=== PATIENT | female | born 1970 | race Asian ===

== ENCOUNTER 2016-08-19 07:38 | Emergency (ER) | payer BC ==
[~2016-08-19] VITALS: Wt 51.3 kg
[~2016-08-19 07:38] MED LIST: CEPH-443 PO; FLUC150T17 PO
--- NOTE | 2016-08-19 08:35 | RADRPT ---
PROCEDURE: Chest Radiograph. CLINICAL INDICATION: Chest pain TECHNIQUE: Single frontal chest radiograph. COMPARISON: Chest radiograph 09/14/2014 FINDINGS: The cardiomediastinal silhouette is within normal limits. No infiltrate or effusion is seen. Th e bones are intact. IMPRESSION: 1. Unremarkable chest radiograph. RPTAT: AA .Meño Hay MD, MD Date Time Electronically viewed and signed by .Meño Hay MD, on 08/19/2016 08:34 .B/
[2016-08-19 08:39] LABS: BASOPHIL # 0.1 10^3/ul (0.0-0.1); BASOPHILS % 0.9 % (0.0-2.0); EOSINOPHILS # 0.3 10^3/ul (0.0-0.5); EOSINOPHILS % 5.3 % (0.0-7.0); HEMOGLOBIN 13.1 g/dl (12.0-16.0); LYMPHOCYTES # 2.6 10^3/ul (0.8-2.9); LYMPHOCYTES % 42.1 % (15.0-51.0); MEAN CORPUSCULAR HEMOGLOBIN 30.2 pg (29.0-33.0); MEAN CORPUSCULAR HGB CONC 33.7 g/dl (32.0-37.0); MEAN CORPUSCULAR VOLUME 89.6 fl (82.0-101.0); MEAN PLATELET VOLUME 8.6 fl (7.4-10.4); MONOCYTE # 0.3 10^3/ul (0.3-0.9); MONOCYTES % 5.3 % (0.0-11.0); NEUTROPHIL # 2.9 10^3/ul (1.6-7.5); NEUTROPHILS % 46.4 % (39.0-77.0); PLATELET COUNT 187 10^3/UL (140-440); RED BLOOD COUNT 4.36 10^6/ul (4.20-5.40); RED CELL DISTRIBUTION WIDTH 12.8 % (11.5-14.5); UNCORRECTED WBC 6.3 10^3/ul (4.8-10.8); WHITE BLOOD COUNT 6.3 10^3/ul (4.8-10.8)
[2016-08-19 08:42] LABS: CONDITION 1
[2016-08-19 08:51] LABS: CHLORIDE 103 mmol/L (97-110); INR 0.84; POTASSIUM 4.1 mmol/L (3.5-5.1); PROTIME 11.5 Sec (12.2-14.2); PT RATIO 0.9; SODIUM 143 mmol/L (135-144)
[2016-08-19 08:52] LABS: PARTIAL THROMBOPLASTIN TIME 26.8 Sec (25.0-35.0)
[2016-08-19 08:54] LABS: ANION GAP 15 (8-16); BLOOD UREA NITROGEN 16 mg/dl (7-20); CALCIUM 9.6 mg/dl (8.4-10.2); CARBON DIOXIDE 29 mmol/L (21-31); CREATININE 0.62 mg/dl (0.44-1.00); GLUCOSE 109 mg/dl (70-220)
[2016-08-19 09:11] LABS: TROPONIN-I < 0.012 ng/ml (0.00-0.12)
[2016-08-19] MEDS ORDERED: KETOROLAC 15 MG INJ IV STA (09:54)
[2016-08-19] MEDS ORDERED: IBUP800T25 PO (09:56)
--- NOTE | 2016-08-19 09:56 | ERD ---
ER Documentation Chief Complaint Date/Time DATE: 08/19/16 TIME: 09:53 Chief Complaint CHEST PAIN FOR 2 DAYS WITH NO N/V NO SOB NOTED. HPI This is a 38-year-old female presents to the emergency room for evaluation of chest pain for 2 days. The patient states that her chest pain is in the right portion of her chest, worse with trunk movement. The patient does state that she was lifting heavy weights at the gym and came to the ER today for evaluation. Denying any relieving factors for her pain and states that the pain is actually almost subsided at this time per ROS All systems reviewed and are negative except as per history of present illness. Medications Home Meds Active Scripts Fluconazole* (Diflucan*) 150 Mg Tablet, 150 MG PO ONCE, #1 TAB Prov:CHENG BARRERA MD 07/30/16 Cephalexin* (Keflex*) 500 Mg Capsule, 500 MG PO TID for 5 Days, CAP Prov:CHENG BARRERA MD 07/30/16 Allergies Allergies: Coded Allergies: No Known Drug Allergy (Verified Allergy, Unknown, 07/30/16) PMhx/Soc History of Surgery: Yes (HYSTERECTOMY) Anesthesia Reaction: No Hx Neurological Disorder: No Hx Respiratory Disorders: No Hx Cardiac Disorders: No Hx Psychiatric Problems: No Hx Miscellaneous Medical Probl: No Hx Alcohol Use: No Hx Substance Use: No Hx Tobacco Use: No Smoking Status: Never smoker Physical Exam Vitals Vital Signs Date Time Temp Pulse Resp B/P Pulse Ox O2 Delivery O2 Flow Rate FiO2 08/19/16 07:53 98.5 61 20 119/62 98 Physical Exam Const: [] Head: Atraumatic Eyes: Normal Conjunctiva ENT: Normal External Ears, Nose and Mouth. Neck: Full range of motion..~ No meningismus. Resp: Clear to auscultation bilaterally Cardio: Regular rate and rhythm, no murmurs Abd: Soft, non tender, non distended. Normal bowel sounds Skin: No petechiae or rashes Back: No midline or flank tenderness Ext: No cyanosis, or edema Neur: Awake and alert Psych: Normal Mood and Affect Result Diagram: 08/19/16 0833 08/19/16 0833 Results 24 hrs Laboratory Tests Test 08/19/16 08:33 Activated Partial Thromboplast Time 26.8Sec Anion Gap 15 Basophils # 0.110^3/ul Basophils % 0.9% Blood Urea Nitrogen 16mg/dl Calcium Level 9.6mg/dl Carbon Dioxide Level 29mmol/L Chloride Level 103mmol/L Creatinine 0.62mg/dl Eosinophils # 0.310^3/ul Eosinophils % 5.3% Glucose Level 109mg/dl Hematocrit 39.0% Hemoglobin 13.1g/dl INR International Normalized Ratio 0.84 Lymphocytes # 2.610^3/ul Lymphocytes % 42.1% Mean Corpuscular Hemoglobin 30.2pg Mean Corpuscular Hemoglobin Concent 33.7g/dl Mean Corpuscular Volume 89.6fl Mean Platelet Volume 8.6fl Monocytes # 0.310^3/ul Monocytes % 5.3% Neutrophils # 2.910^3/ul Neutrophils % 46.4% Nucleated Red Blood Cells # 0.010^3/ul Nucleated Red Blood Cells % 0.0/100WBC Platelet Count 13826^3/UL Potassium Level 4.1mmol/L Prothrombin Time 11.5Sec Prothrombin Time Ratio 0.9 Red Blood Count 4.3610^6/ul Red Cell Distribution Width 12.8% Sodium Level 143mmol/L Troponin I < 0.012ng/ml White Blood Count 6.310^3/ul Procedures/MDM EKG: Rate/Rhythm: [Normal Sinus Rhythm] QRS, ST, T-waves: [No changes consistent w/ acute ischemia] Impression: [No evidence of ischemia or arrhythmia] Chest X-ray 1V Interpreted by me: Soft Tissue: No acute abnormalities Bones: No acute abnormalities Mediastinum/Cardiac Silhouette/Lungs: [No acute abnormalities] This is a 46-year-old female presents to the emergency room for evaluation of chest pain. The patient states that she has had chest pain for the past 2 days. She states is worse with trunk movement. She did have a minor tenderness to palpation on examination of the anterior chest wall. EKG is normal sinus rhythm, no ischemia, first troponin is normal. The patient has a negative chest x-ray. She is hemodynamically stable, not hypoxic, resting comfortably. She was given Toradol with moderate relief of her symptoms. I do believe that she has a chest wall strain. Advised to follow-up with her primary care physician to schedule outpatient stress test. The patient verbalized understanding is okay the plan of care at this time. Departure Diagnosis: Primary Impression: Chest pain Additional Impression: Chest wall muscle strain Condition: Stable ROXANN STOUT DO Aug 19, 2016 09:55
== END 2016-08-19 10:10 | disposition home or self-care (01) ==
LOC: E/R 07:38
DX: S29.011A Strain of muscle and tendon of front wall of thorax, initial encounter (principal); R07.9 Chest pain, unspecified; X50.0XXA Overexertion from strenuous movement or load, initial encounter; Y92.39 Other specified sports and athletic area as the place of occurrence of the external cause
CPT/HCPCS: 71010; 80048; 84484; 85025; 85610; 85730; 93005

== ENCOUNTER → 2017-04-12 | Outpatient (CLI) | payer BC ==
[~2017-04-12] MED LIST changes: +IBUP800T25 PO
[2017-04-12 10:08] LABS: ADD UMIC NO; UR ASCORBIC ACID 40 mg/dL (NEGATIVE); UR BILIRUBIN (Dip) NEGATIVE (NEGATIVE); UR BLOOD (Dip) NEGATIVE (NEGATIVE); UR CLARITY CLEAR (CLEAR); UR COLOR YELLOW (YELLOW); UR GLUCOSE (Dip) NEGATIVE (NEGATIVE); UR KETONES (Dip) NEGATIVE (NEGATIVE); UR LEUKOCYTE ESTERASE (Dip) NEGATIVE Leu/ul (NEGATIVE); UR NITRITE (Dip) NEGATIVE (NEGATIVE); UR SPECIFIC GRAVITY (Dip) 1.015 (1.003-1.030); UR TOTAL PROTEIN (Dip) NEGATIVE (NEGATIVE); UR UROBILINOGEN (Dip) NEGATIVE (NEGATIVE)
[2017-04-12 10:10] LABS: BASOPHILS % 0.7 % (0.0-2.0); EOSINOPHILS # 0.4 10^3/ul (0.0-0.5); EOSINOPHILS % 7.5 % (0.0-7.0); HEMATOCRIT 39.4 % (37.0-47.0); HEMOGLOBIN 12.9 g/dl (12.0-16.0); LYMPHOCYTES # 2.7 10^3/ul (0.8-2.9); LYMPHOCYTES % 48.7 % (15.0-51.0); MEAN CORPUSCULAR HEMOGLOBIN 29.3 pg (29.0-33.0); MEAN CORPUSCULAR HGB CONC 32.7 g/dl (32.0-37.0); MEAN CORPUSCULAR VOLUME 89.5 fl (82.0-101.0); MEAN PLATELET VOLUME 10.2 fl (7.4-10.4); MONOCYTE # 0.3 10^3/ul (0.3-0.9); MONOCYTES % 6.1 % (0.0-11.0); NEUTROPHIL # 2.1 10^3/ul (1.6-7.5); NEUTROPHILS % 36.8 % (39.0-77.0); PLATELET COUNT 193 10^3/UL (140-415); RED CELL DISTRIBUTION WIDTH 12.6 % (11.5-14.5); WHITE BLOOD COUNT 5.6 10^3/ul (4.8-10.8)
[2017-04-12 10:45] LABS: ALBUMIN 4.4 g/dl (3.3-4.9); ALBUMIN/GLOBULIN RATIO 1.12; BILIRUBIN,INDIRECT 0.5 mg/dl (0-1.1); BILIRUBIN,TOTAL 0.5 mg/dl (0.2-1.3); CHOL/HDL RATIO 3.7 RATIO; CREATININE 0.65 mg/dl (0.44-1.00); POTASSIUM 3.9 mmol/L (3.5-5.1); TOTAL PROTEIN 8.3 g/dl (6.1-8.1)
[2017-04-12 11:14] LABS: THYROID STIMULATING HORMONE 0.861 MIU/L (0.465-4.680)
== END | disposition home or self-care (01) ==
LOC: LAB 09:43
PROVIDERS: ATTEND Internal Medicine
DX: Z00.01 Encounter for general adult medical examination with abnormal findings (principal); E55.9 Vitamin D deficiency, unspecified
CPT/HCPCS: 80053; 80061; 81003; 82306; 84443; 85025; 85651; 86430

== ENCOUNTER 2017-06-19 18:08 | Emergency (ER) | payer BC ==
[~2017-06-19] VITALS: Wt 53.0 kg
[2017-06-19] MEDS ORDERED: KETOROLAC 15 MG INJ IV STA (20:27)
--- NOTE | 2017-06-19 21:00 | RADRPT ---
AMENDMENT: 06/19/2017 9:00:48 PM Shea Rivas M.d ADDENDUM: Comparison: Chest x-ray 08/19/2016. PROCEDURE: XR Chest. CLINICAL INDICATION: Chest pain. TECHNIQUE: AP Portable chest. COMPARISON: None FINDINGS: The cardiomediastinal silhouette is normal. The lungs are clear and costophrenic angles sharp. The osseous structures are unremarkable. IMPRESSION: No radiographic evidence of acute cardiopulmonary disease. RPTAT: HJAH .Shea Rivas MD, MD Date Time Electronically viewed and signed by .Shea Rivas MD, MD on 06/19/2017 21:00 .H/
[2017-06-19 21:15] LABS: BASOPHIL # 0.1 10^3/ul (0.0-0.1); EOSINOPHILS # 0.4 10^3/ul (0.0-0.5); EOSINOPHILS % 6.5 % (0.0-7.0); HEMATOCRIT 38.4 % (37.0-47.0); LYMPHOCYTES % 49.3 % (15.0-51.0); MEAN CORPUSCULAR HEMOGLOBIN 29.6 pg (29.0-33.0); MEAN CORPUSCULAR HGB CONC 33.9 g/dl (32.0-37.0); MEAN CORPUSCULAR VOLUME 87.5 fl (82.0-101.0); MEAN PLATELET VOLUME 10.7 fl (7.4-10.4); MONOCYTE # 0.4 10^3/ul (0.3-0.9); MONOCYTES % 7.3 % (0.0-11.0); NEUTROPHIL # 2.2 10^3/ul (1.6-7.5); NEUTROPHILS % 35.7 % (39.0-77.0); PLATELET COUNT 187 10^3/UL (140-415); RED BLOOD COUNT 4.39 10^6/ul (4.20-5.40); RED CELL DISTRIBUTION WIDTH 12.3 % (11.5-14.5)
[2017-06-19 21:31] LABS: ANION GAP 13 (8-16); BLOOD UREA NITROGEN 20 mg/dl (7-20); CALCIUM 9.9 mg/dl (8.4-10.2); CARBON DIOXIDE 31 mmol/L (21-31); CHLORIDE 104 mmol/L (97-110); CREATININE 0.76 mg/dl (0.44-1.00); GLUCOSE 101 mg/dl (70-220); POTASSIUM 4.1 mmol/L (3.5-5.1); SODIUM 144 mmol/L (135-144)
[2017-06-19 21:48] LABS: TROPONIN-I < 0.012 ng/ml (0.00-0.12)
[2017-06-19] MEDS ORDERED: NAPR-260 PO (21:53)
--- NOTE | 2017-06-19 22:00 | ERD ---
ER Documentation Chief Complaint Chief Complaint ON AND OFF CHEST X1 DAY HPI 47-year-old female no significant past medical history presents to the emergency room with left-sided chest pain. She describes it as sharp, worse to touch and slightly radiating to the left shoulder. She denies any exertional symptoms, no pleuritic pain, no fevers or chills and no mid back pain. The patient states that she has had multiple episodes of this in the past since 2012 with negative workups in the emergency room. She has not had stress testing. ROS All systems reviewed and are negative except as per history of present illness. Medications Home Meds Active Scripts Naproxen* (Naprosyn*) 500 Mg Tablet, 500 MG PO BID Y for PAIN AND/OR INFLAMMATION, #15 TAB Prov:MARTINEZ MILLER MD 06/19/17 Ibuprofen* (Motrin*) 800 Mg Tab, 800 MG PO Q6H Y for PAIN AND OR ELEVATED TEMP, #30 TAB Prov:ROXANN STOUT DO 08/19/16 Fluconazole* (Diflucan*) 150 Mg Tablet, 150 MG PO ONCE, #1 TAB Prov:CHENG BARRERA MD 07/30/16 Cephalexin* (Keflex*) 500 Mg Capsule, 500 MG PO TID for 5 Days, CAP Prov:CHENG BARRERA MD 07/30/16 Allergies Allergies: Coded Allergies: No Known Drug Allergy (Verified Allergy, Unknown, 07/30/16) PMhx/Soc History of Surgery: Yes (HYSTERECTOMY, CS x 2) Anesthesia Reaction: No Hx Neurological Disorder: No Hx Respiratory Disorders: No Hx Cardiac Disorders: No Hx Psychiatric Problems: No Hx Miscellaneous Medical Probl: No Hx Alcohol Use: Yes Hx Substance Use: No Hx Tobacco Use: No Smoking Status: Never smoker FmHx Family History: No diabetes Physical Exam Vitals Vital Signs Date Time Temp Pulse Resp B/P Pulse Ox O2 Delivery O2 Flow Rate FiO2 06/19/17 20:21 63 20 145/92 100 Room Air 06/19/17 19:55 155/70 06/19/17 18:14 98.2 81 17 138/84 98 Physical Exam General: Well developed, well nourished, no acute distress Head: Normocephalic, atraumatic. Eyes: Pupils equally reactive, EOM intact ENT: Moist mucous membranes Neck: Supple, no lymphadenopathy Respiratory: Lungs clear bilaterally, no distress, very reproducible anterior chest wall tenderness along the sternal costal margin on the left side of the chest Cardiovascular: RRR, no murmurs, rubs, or gallops Abdominal: Soft, non-tender, non-distended, no peritoneal signs : Deferred MSK: No edema, no unilateral swelling, 5/5 strength Neurologic: Alert and oriented, moving all extremities, normal speech, no focal weakness, no cerebellar signs Skin: No rash Psych: Normal mood Result Diagram: 06/19/17204906/19/172049 Results 24 hrs Laboratory Tests Test 06/19/17 20:50 White Blood Count 6.010^3/ul Red Blood Count 4.3910^6/ul Hemoglobin 13.0g/dl Hematocrit 38.4% Mean Corpuscular Volume 87.5fl Mean Corpuscular Hemoglobin 29.6pg Mean Corpuscular Hemoglobin Concent 33.9g/dl Red Cell Distribution Width 12.3% Platelet Count 72004^3/UL Mean Platelet Volume 10.7fl Neutrophils % 35.7% Lymphocytes % 49.3% Monocytes % 7.3% Eosinophils % 6.5% Basophils % 1.0% Nucleated Red Blood Cells % 0.0/100WBC Neutrophils # 2.210^3/ul Lymphocytes # 3.010^3/ul Monocytes # 0.410^3/ul Eosinophils # 0.410^3/ul Basophils # 0.110^3/ul Nucleated Red Blood Cells # 0.010^3/ul Sodium Level 144mmol/L Potassium Level 4.1mmol/L Chloride Level 104mmol/L Carbon Dioxide Level 31mmol/L Anion Gap 13 Blood Urea Nitrogen 20mg/dl Creatinine 0.76mg/dl Glucose Level 101mg/dl Calcium Level 9.9mg/dl Troponin I < 0.012ng/ml Current Medications Medications (Trade) Dose Ordered Sig/Yaa Route PRN Reason Start Time Stop Time Status Last Admin Dose Admin Ketorolac Tromethamine (Toradol) 15 mg ONCE STAT IV 06/19/17 20:27 06/19/17 20:29 DC 06/19/17 21:03 Procedures/MDM EKG, MONITORS, & DIAGNOSTIC IMAGING: EKG: I reviewed and interpreted a 12-lead EKG. Rhythm: Normal sinus rhythm Ectopy: None Intervals: No abnormalities ST segments: No elevations or depressions T waves: No contiguous inversions Repeat EKG: EKG: I reviewed and interpreted a 12-lead EKG. Rhythm: Normal sinus rhythm Ectopy: None Intervals: No abnormalities ST segments: No elevations or depressions T waves: No contiguous inversions Chest x-ray: I reviewed and interpreted a 1 view of the chest Mediastinum: No enlargement Cardiac silhouette: No cardiomegaly Airspace: Clear lung rodriguez bilaterally without evidence of pneumothorax Bones: No evidence of fracture LAB INTERPRETATION: Negative troponin MEDICAL DECISION MAKING: The patient's history, physical exam and clinical presentation is very reproducible and most consistent with musculoskeletal etiology. The patient is 47 without significant risk factors for early cardiac disease. She is extremely reproducible symptoms at the bedside. Additionally, the patient has had multiple workups for chest pain in the past that have been unrevealing. The patient meets the PERC RULE out criteria. Thus, less than 2% risk of pulmonary embolism with better alternative diagnosis. No indication for d- dimer or CT pulmonary angiogram at this time. Based on the patient's clinical exam and history and risk factors, I have a much lower clinical concern for pulmonary embolism, acute aortic dissection, pneumothorax, pneumonia, cardiac tamponade HEART Score: 1 MACE Rate: Less than 1.7% Shared Decision Making: We had a conversation regarding risk stratification, MACE rate, and the risks, benefits, alternatives of disposition planning options. Disposition planning: Given very low pretest probability for cardiac etiology with reproducible symptoms I recommend outpatient follow-up. I discussed serial troponins in the emergency room with the patient is agreeable for single troponin given duration of symptoms. Than 6 hours, atypical presentation and negative workups in the past. ER COURSE: She was given an anti-inflammatory with improvement of symptoms. Her laboratory testing and diagnostic imaging is unrevealing. I attempted to call Dr. Brower without callback at this time. Outpatient follow-up recommended for patient. She is agreeable. Return precautions were discussed including exertional symptoms or worsening symptoms. I kept the patient and/or family informed of laboratory and diagnostic imaging results throughout the emergency room course. DISPOSITION PLAN: We discussed follow up with the patient's primary care doctor within 24 to 48 hours as needed. We also discussed return to the emergency room for worsening symptoms or worsening condition. Outpatient referral: [None required] Discharge Medications: Naprosyn Departure Diagnosis: Primary Impression: Chest wall pain Condition: Stable Patient Instructions: Chest Wall Pain, Costochondritis Additional Instructions: Call your primary care doctor TOMORROW for an appointment during the next 1 WEEK.Tell the national secretary that you were referred from this facility.See the doctor sooner or return here if your condition worsens before your appointment time. Return for worsening pain, exertional chest pain. MARTINEZ MILLER MD Jun 19, 2017 22:00
[2017-06-19 22:22] VITALS: BP 125/79; PULSE 67; RESP 20
== END 2017-06-19 22:22 | disposition home or self-care (01) ==
LOC: E/R 18:08
DX: R07.89 Other chest pain (principal)
CPT/HCPCS: 36415; 71010; 80048; 84484; 85025; 93005; 96374; 99285; J1885

== ENCOUNTER → 2017-06-22 | Outpatient (CLI) | END | disposition home or self-care (01) ==

== ENCOUNTER → 2017-07-12 | Outpatient (CLI) | END | disposition home or self-care (01) ==

== ENCOUNTER → 2018-03-27 | Outpatient (CLI) | END | disposition home or self-care (01) ==

== ENCOUNTER 2018-10-24 08:56 | Emergency (ER) | payer BC ==
[~2018-10-24] VITALS: Ht 152.4 cm; Wt 52.0 kg
[~2018-10-24 08:56] MED LIST changes: +FLUC150T PO; -FLUC150T17 PO; -IBUP800T25 PO; +IBUP800T48 PO; +NAPR-985 PO
[2018-10-24 09:10] VITALS: BP 133/77; PULSE 64; RESP 18; Ht 152.4 cm; Wt 52.0 kg
[2018-10-24] MEDS ORDERED: FLUORESCEIN STRIP LEFT EYE ONE (09:30)
[2018-10-24] MEDS ORDERED: TETRACAINE 0.5% 4 ML OPH LEFT EYE ONE (09:30)
[2018-10-24] MEDS ORDERED: OFLO5DRO46 LEFT EYE (09:52)
--- NOTE | 2018-10-24 11:02 | ERD ---
ER Documentation Chief Complaint Chief Complaint LEFT EYE PAIN HPI 48-year-old female presenting with pain to her left eye. Patient states that last night she felt something blow in her eye and she said irritation ever since. Patient tried washing her eye with normal saline. She does not wear contacts but does wear glasses. Denies medical problems. NKDA. Surgical history hysterectomy. Social history denies ROS All systems reviewed and are negative except as per history of present illness. Medications Home Meds Active Scripts Ofloxacin* (Ocuflox*) 0.3%-5 Ml Ophth Drops, 1 DROP LEFT EYE QID, #1 BOTTLE Prov:MONTSERRAT MARIN PA-C 10/24/18 Naproxen* (Naprosyn*) 500 Mg Tablet, 500 MG PO BID PRN for PAIN AND/OR INFLAMMATION, #15 TAB Prov:MARTINEZ MILLER MD 06/19/17 Ibuprofen* (Motrin*) 800 Mg Tab, 800 MG PO Q6H PRN for PAIN AND OR ELEVATED TEMP, #30 TAB Prov:ROXANN STOUT DO 08/19/16 Fluconazole* (Diflucan*) 150 Mg Tablet, 150 MG PO ONCE, #1 TAB Prov:CHENG BARRERA MD 07/30/16 Cephalexin* (Keflex*) 500 Mg Capsule, 500 MG PO TID for 5 Days, CAP Prov:CHENG BARRERA MD 07/30/16 Allergies Allergies: Coded Allergies: No Known Drug Allergy (Verified Allergy, Unknown, 10/24/18) PMhx/Soc History of Surgery: Yes (HYSTERECTOMY, CS x 2) Anesthesia Reaction: No Hx Neurological Disorder: No Hx Respiratory Disorders: No Hx Cardiac Disorders: No Hx Psychiatric Problems: No Hx Miscellaneous Medical Probl: No Hx Alcohol Use: Yes (social) Hx Substance Use: No Hx Tobacco Use: No Smoking Status: Never smoker FmHx Family History: No diabetes, No coronary disease, No other Physical Exam Vitals Vital Signs Date Temp Pulse Resp B/P (MAP) Pulse Ox O2 O2 Flow FiO2 Time Delivery Rate 10/24/18 97.0 64 18 133/77 100 09:10 (95) Physical Exam GENERAL: The patient is well-appearing, well-nourished, in no acute distress HEENT: Atraumatic. Conjunctivae are pink. Pupils equal, round, and reactive to light. There is no scleral icterus. Tympanic membranes clear bilaterally. Oropharynx clear. No erythema injection to the left eye. No surrounding ocular soft tissue swelling. NECK: C-spine is soft and supple. There is no meningismus. There is no cervical lymphadenopathy. CHEST: Clear to auscultation bilaterally. There are no rales, wheezes or rhonchi. HEART: Regular rate and rhythm. No murmurs, clicks, rubs or gallops. Results 24 hrs Current Medications Medications Dose Sig/Yaa Start Time Status Last (Trade) Ordered Route PRN Stop Time Admin Dose Reason Admin Tetracaine 1 drop ONCE ONCE 10/24/18 DC HCl LEFT EYE 09:30 (Tetracaine 10/24/18 09:31 0.5% Steri-Unit Linh) Fluorescein 1 strip ONCE ONCE 10/24/18 DC Sodium LEFT EYE 09:30 (Ivrsg-O-Gaok 10/24/18 09:31 p) Procedures/MDM ER course: Fluorescein and tetracaine applied to left eye. Possible foreign body removed with no signs of corneal abrasion or injury. No foreign body noted. MDM: 48-year-old female presenting with irritation to her left eye. I will treat for possible corneal abrasion as there is no foreign body appreciated. Patient is discharged and recommended to follow-up with her primary doctor. She is told symptoms change or worsen to return to the ER immediately. I have low suspicion for visual deficit. I have low suspicion for soft tissue infection, periorbital or orbital cellulitis. All questions answered at discharge Departure Diagnosis: Primary Impression: Eye injury Condition: Stable Patient Instructions: Corneal Injury Referrals: ESCOBAR CORNELIUS MD (PCP) Additional Instructions: FOLLOW UP WITH YOUR PRIMARY CARE PHYSICIAN TOMORROW.Return to this facility if you are not improving as expected. MONTSERRAT MARIN PA-C Oct 24, 2018 11:02
== END 2018-10-24 10:08 | disposition home or self-care (01) ==
LOC: FTE 08:56
DX: S05.92XA Unspecified injury of left eye and orbit, initial encounter (principal); X58.XXXA Exposure to other specified factors, initial encounter; Y92.9 Unspecified place or not applicable
CPT/HCPCS: 99283

== ENCOUNTER 2019-03-05 08:43 | Emergency (ER) | payer BC ==
[~2019-03-05] VITALS: Ht 152.4 cm; Wt 54.2 kg
[~2019-03-05 08:43] MED LIST changes: +OFLO5DRO46 LEFT EYE
[2019-03-05 08:52] VITALS: BP 146/75; PULSE 58; RESP 18; Ht 152.4 cm; Wt 54.2 kg
== END 2019-03-05 09:28 | disposition home or self-care (01) ==
LOC: FTE 08:43
DX: J02.9 Acute pharyngitis, unspecified (principal)
CPT/HCPCS: 99282